=== PATIENT | female | born 1955 | race Caucasian/White ===

== ENCOUNTER 2018-06-25 11:38 | Emergency (ER) | payer OTHER, SELFPAY ==
[2018-06-25 11:44] VITALS: BP 124/90; PULSE 73; RESP 14; TEMP 36.6; O2SAT 96
--- NOTE | 2018-06-25 12:03 | ED.GENADUL ---
Disposition Clinical Impression: Nausea vomiting and diarrhea Disposition: HOME Condition: Stable Instructions: Acute Nausea and Vomiting (ED) Additional Instructions: follow up with your primary care provider within a week if symptoms continue if you have severe pain, difficulty breathing or persistent vomit despite medications and feel dehydrated return to the emergency department Prescriptions: Ondansetron ODT [Zofran Odt] 4 mg PO Q8H PRN PRN #20 tabef PRN Reason: Nausea / Vomiting Medical Decision Making - Lab Data Results reviewed for labs ordered during visit: Yes - Radiology Data Radiology results: report reviewed, image reviewed - Medical Decision Making pt here with symptoms that could be from gastroenteritis, but given right lower back pain will obtain renal colic .Will also eval for electrolyte abnormalities. No risk factors for c diff. Has no significant pain in the abdomen and no ruq so doubt heptiatitis, cholecystitis, or sbo labs unremarkable, her nausea is better but now had mild headache which she gets frequently and is not worse of her life, doubt sah or assembly machine tender infection at this time. will treat with toradol and d/c home. advised f/u with pcp and return precautions given - Differential Diagnosis gastroenteritis, renal colic, colitis History of Present Illness - General Chief complaint: Nausea/Vomit/Diar Stated complaint: PER TENISHA Time Seen by Provider: 06/25/18 11:41 Source: patient Mode of arrival: ambulatory Limitations: no limitations - History of Present Illness Initial comments: 63 yo female comes in with nausea and vomit along with watery stools since yesterday and states she can't keep anything down when trying to eat. She also notes intermittent right lower back pain of the lumbar region. She denies fevers, recent travel or abx. Has had some abodminal cramping but no pain. Has no abdominal tenderness on exam and no cva tenderness, denies dysuria or frequency MD Complaint: n/v/d Onset/Timin -: days(s) Improves with: none Worsens with: none - Related Data Guaifenesin [Mucinex] 1 - 2 tab-cap PO Q12H PRN PRN tab-cap 02/04/13 Multivitamin [Multi-Vitamin Daily] 1 each PO DAILY 02/04/13 Cranberry Conc/Ascorbic Acid [Cranberry Plus Vitamin C Sftgl] 1 each PO DAILY 03/22/14 Calcium Carbonate [Caltrate 600] 600 mg PO BID 04/07/14 Acetaminophen [Tylenol Extra Strength] 1,000 mg PO Q6H PRN 05/09/15 Ibuprofen [Ibuprofen Ib] 600 mg PO PRN PRN 09/16/16 Fluticasone Propionate [Flonase] 2 sprays NS DAILY #1 canister 11/13/17 Glucosamine/D3/Boswellia Marie [Osteo Bi-Flex Caplet] 2 each PO DAILY 11/13/17 Ipratropium [place] 2 sprays NS BID #1 canister 11/13/17 Cholecalciferol (Vitamin D3) [Vitamin D3] 2,000 unit PO DAILY 11/26/17 Fexofenadine HCl 180 mg PO DAILY tab-cap 11/26/17 Losartan [Cozaar] 25 mg PO DAILY #90 tab 04/09/18 Ondansetron ODT [Zofran Odt] 4 mg PO Q8H PRN PRN #20 tabef 06/25/18 Prochlorperazine [Compazine] 25 mg RC BID PRN #10 supp.rect 06/25/18 Allergies Allergy/AdvReac Type Severity Reaction Status Date / Time oxybutynin Allergy Severe Anaphylaxsi Unverified 06/25/18 11:49 s oxycodone Allergy Severe itching/diz Unverified 06/25/18 11:49 ziness Penicillins Allergy Severe Rash Unverified 06/25/18 11:49 Sulfa (Sulfonamide Allergy Intermediate Itching Unverified 06/25/18 11:49 Antibiotics) zoster vaccine live Allergy Intermediate Unverified 06/25/18 11:49 [From Zostavax (PF)] adhesive AdvReac Intermediate Skin Rash Unverified 06/25/18 11:49 loratadine AdvReac Intermediate Palpitation Unverified 06/25/18 11:49 s morphine AdvReac Intermediate profuse Unverified 06/25/18 11:49 vomiting codeine AdvReac Unknown profuse Unverified 06/25/18 11:49 vomiting erythromycin base AdvReac Unknown Diarrhea Unverified 06/25/18 11:49 on day 1 Review of Systems Constitutional: denies: chills, fever Respiratory: denies: shortness of breath Cardiovascular: denies: chest pain Gastrointestinal: nausea, vomiting, diarrhea. denies: abdominal pain Musculoskeletal: back pain Skin: denies: rash Neurological: denies: headache Comment: All other systems reviewed and negative Past Medical History - Past Medical History Medical history: hyperlipidemia - Social History Alcohol use: none Drug use: none General Exam - General Limitations: no limitations General appearance: alert, in no apparent distress - Head Head exam: Present: atraumatic - Eye Eye exam: Present: normal apperance - ENT ENT exam: Present: mucous membranes moist - Neck Neck exam: Present: normal inspection - Respiratory Respiratory exam: Present: normal lung sounds bilaterally. Absent: respiratory distress - Cardiovascular Cardiovascular Exam: Present: regular rate, normal rhythm, normal heart sounds - GI/Abdominal GI/Abdominal exam: Present: soft. Absent: tenderness - Extremities Exam Extremities exam: Present: normal inspection. Absent: pedal edema - Neurological Exam Neurological exam: Present: alert, oriented X3 - Psychiatric Psychiatric exam: Present: normal affect - Skin Skin exam: Present: warm Course Vital Signs - 24 hr 08/15/18 11:44 Temperature 97.9 F Pulse 73 Respiratory 14 Rate Blood Pressure 124/90 Pulse Oximetry 96
[2018-06-25] MEDS: Ondansetron 4 MG/2 ML VIAL IVP (12:20)
[2018-06-25] MEDS: Normal Saline 1,000 ML 1000 ML IV (12:20)
[2018-06-25 12:23] LABS: Abs Immature Grans 0.02 k/cumm (0.0-0.09); Absolute Basophil Count 0.01 k/cumm (0.0-0.2); Absolute Eosinophil Count 0.03 k/cumm (0.0-0.7); Absolute Lymphocyte Count 1.13 k/cumm (1.2-3.4); Absolute Monocyte Count 0.34 k/cumm (0.11-0.7); Absolute Neutrophil Count 7.18 k/cumm (1.2-6.7); Basophils % 0.1; Eosinophils % 0.3; HCT 44.5 % (36.0-46.0); HGB 15.3 g/dL (12.0-15.5); Immature Grans % 0.2; Mean Corp. HGB Concentration 34.4 g/dL (32.0-36.0); Mean Corpuscular Hemoglobin 32.9 pg (27.0-33.0); Mean Corpuscular Volume 95.7 fL (80-95); Mean Platelet Volume 10.1 fL (8.0-11.0); Monocytes % 3.9; Neutrophils % 82.5; Platelet Count 222 x1000/uL (130-400); RBC 4.65 m/cumm (4.00-5.20); RBC Distribution Width 12.8 % (11.7-14.6); White Blood Cell Count 8.71 k/cumm (4.4-10.8)
[2018-06-25 12:34] LABS: ALT 73 U/L (12-78); AST 36 U/L (15-37); Albumin 3.8 g/dL (3.4-5.0); Alkaline Phosphatase 72 U/L (46-116); Anion Gap 9.6 mmol/L (3-11); BUN 19 mg/dL (7-18); Bilirubin, Total 0.5 mg/dL (0.2-1.0); CO2 26.4 mmol/L (21.0-32.0); CREATININE 0.79 mg/dL (0.55-1.02); Calcium 9.4 mg/dL (8.5-10.1); Chloride 106 mmol/L (98-107); Glucose 147 mg/dL (70-100); Lipase 160 U/L (73-393); Magnesium 1.6 mg/dL (1.8-2.4); Sodium 142 mmol/L (136-145); Total Protein 7.8 g/dL (6.4-8.2)
--- NOTE | 2018-06-25 12:54 | DI.RPTCT_ITS ---
SYMPTOM/DIAGNOSIS: RIGHT FLANK PAIN ABDOMINAL AND PELVIC CT: 06/25/18 CT examination of the abdomen and pelvis was performed without contrast administration. Images obtained through the lung bases are unremarkable. The visualized portions of the liver are unremarkable in appearance as is the spleen. Gallbladder has been surgically removed. Pancreas is grossly unremarkable in appearance. No biliary dilatation seen. Abdominal aorta is of normal diameter. There appears to be a small fat containing left lower abdominal, lateral Spigelian hernia. No additional abdominal wall hernia is seen apart from small fat containing inguinal hernias bilaterally, Appendix appears to have been surgically removed. No evidence of diverticulitis or bowel obstruction. No abdominal or pelvic adenopathy seen. Adrenals appear normal bilaterally Kidneys are unremarkable in appearance with no evidence of a renal mass, hydronephrosis or nephrolithiasis. No ureteral calcification or obstruction identified. Urinary bladder is empty. Left hip prosthesis noted in position. CONCLUSION: No evidence of urinary tract calcification or obstruction.
[2018-06-25 13:07] LABS: Bilirubin Negative (Negative); Blood Negative (Negative); Clarity Clear; Glucose Negative (Negative); Ketones 15 mg/dL (Negative); Leukocyte Esterase Small (Negative); Nitrite Negative (Negative); Specific Gravity 1.025 (1.005-1.025); Urobilinogen 0.2 EU/dL (Up TO 0.2); pH 5.5 (5-8)
[2018-06-25] MEDS: Ketorolac 15 MG/ML VIAL IVP (13:15)
[2018-06-25 13:20] LABS: Bacteria Moderate HPF (Negative); Casts 0-2 Coarse Granular LPF (Negative); Crystals Negative HPF (Negative); Epithelial Cells Moderate HPF (Negative); Mucus Heavy (Negative); Other Cells Moderate Renal (Negative)
[2018-06-25 13:21] LABS: C & S Indicated? No
[2018-06-25] MEDS: Ondansetron O.D.T. 4 MG TABEF (13:45)
== END 2018-06-25 14:05 | disposition home or self-care (01) ==
PROVIDERS: Emergency Provider Emergency Medicine; PCP Nurse Practitioner
DX: R11.2 Nausea with vomiting, unspecified (principal); R19.7 Diarrhea, unspecified; M54.5 Low back pain; I10 Essential (primary) hypertension
CPT/HCPCS: 36415; 80053; 83690; 96361; 96374; 96375; 99284; 74176; 81003; 81015; 83735; 85025; J1885; J2405

== ENCOUNTER 2018-06-26 12:23 | Emergency (ER) | payer OTHER, SELFPAY ==
[2018-06-26] VITALS (25 sets, daily range): BP systolic 101–136; BP diastolic 67–91; PULSE 68–78; RESP 14–16; TEMP 36.6–36.8; O2SAT 89–99
--- NOTE | 2018-06-26 13:03 | ED.GENADUL ---
Disposition Clinical Impression: Nausea vomiting and diarrhea Disposition: HOME Condition: Serious Instructions: Acute Nausea and Vomiting (ED) Additional Instructions: Please drink small amounts of fluid often to stay hydrated. Use suppository as prescribed for nausea. Please follow-up with your primary care physician. Return to the emergency department immediately for any worsening or new concerning symptoms. Referrals: Clemencia Ely NP [Primary Care Provider] - Medical Decision Making - Lab Data Laboratory Tests 06/26/18 06/26/18 06/26/18 12:54 13:00 13:00 WBC 8.62 RBC 4.49 Hgb 14.8 Hct 43.0 MCV 95.8 H MCH 33.0 MCHC 34.4 RDW 12.6 Plt Count 205 MPV 9.7 Immature Gran % 0.2 Neutrophils % 74.5 Lymphocytes % 18.0 Monocytes % 6.5 Eosinophils % 0.7 Basophils % 0.1 Absolute Neutrophils 6.42 Absolute Lymphocytes 1.55 Absolute Monocytes 0.56 Absolute Eosinophils 0.06 Absolute Basophils 0.01 Sodium 142 Potassium 4.2 Chloride 105 Carbon Dioxide 26.6 Anion Gap 10.4 BUN 20 H Creatinine 0.76 Estimated GFR/1.73 m2 >= 60.00 Glucose 113 H Calcium 9.0 Total Bilirubin 0.6 AST 38 H ALT 71 Alkaline Phosphatase 68 Total Protein 7.6 Albumin 3.7 Lipase Cancelled 160 Results reviewed for labs ordered during visit: Yes - Medical Decision Making 13:05 --63-year-old female here with nausea vomiting and loose stool for the past 2 days. Not tolerating oral intake. Patient recently placed prochlorperazine suppository. Will give IV fluids. Labs yesterday were nondiagnostic. Will repeat labs today to see if there is any electrolyte abnormalities or change in LFTs. -- Pt reassessed and improved. Pt to be discharged home. She was encouraged to follow-up with PCP and return to the ER for any worsening or new concerning symptoms. History of Present Illness - General Chief complaint: Nausea/Vomit/Diar Stated complaint: REVISIT Time Seen by Provider: 06/26/18 12:26 Source: patient, RN notes reviewed Mode of arrival: ambulatory Limitations: no limitations - History of Present Illness Initial comments: 63-year-old female presents with chief complaint of vomiting. Patient unable to keep any fluids down. Patient notes nausea with vomiting and loose stool for the past 2 days. Patient was seen by her PCP yesterday and sent to the emergency department for evaluation. Patient was seen here yesterday and had a complete workup to include diagnostic labs and CT of the abdomen pelvis that were nondiagnostic. She was given IV fluid and discharged with Zofran. Patient notes that she did not feel well and developed headache with Zofran. She was prescribed prochlorperazine suppository which she placed today at 9am. Patient notes associated muscular abdominal pain from retching. Patient denies chest pain. No known sick contacts. No recent travel. - Related Data Guaifenesin [Mucinex] 1 - 2 tab-cap PO Q12H PRN PRN tab-cap 02/04/13 Multivitamin [Multi-Vitamin Daily] 1 each PO DAILY 02/04/13 Cranberry Conc/Ascorbic Acid [Cranberry Plus Vitamin C Sftgl] 1 each PO DAILY 03/22/14 Calcium Carbonate [Caltrate 600] 600 mg PO BID 04/07/14 Acetaminophen [Tylenol Extra Strength] 1,000 mg PO Q6H PRN 05/09/15 Ibuprofen [Ibuprofen Ib] 600 mg PO PRN PRN 09/16/16 Fluticasone Propionate [Flonase] 2 sprays NS DAILY #1 canister 11/13/17 Glucosamine/D3/Boswellia Marie [Osteo Bi-Flex Caplet] 2 each PO DAILY 11/13/17 Ipratropium [place] 2 sprays NS BID #1 canister 11/13/17 Cholecalciferol (Vitamin D3) [Vitamin D3] 2,000 unit PO DAILY 11/26/17 Fexofenadine HCl 180 mg PO DAILY tab-cap 11/26/17 Losartan [Cozaar] 25 mg PO DAILY #90 tab 04/09/18 Ondansetron ODT [Zofran Odt] 4 mg PO Q8H PRN PRN #20 tabef 06/25/18 Prochlorperazine [Compazine] 25 mg RC BID PRN #10 supp.rect 06/25/18 Allergies Allergy/AdvReac Type Severity Reaction Status Date / Time oxybutynin Allergy Severe Anaphylaxsi Unverified 06/26/18 12:36 s oxycodone Allergy Severe itching/diz Unverified 06/26/18 12:36 ziness Penicillins Allergy Severe Rash Unverified 06/26/18 12:36 Sulfa (Sulfonamide Allergy Intermediate Itching Unverified 06/26/18 12:36 Antibiotics) zoster vaccine live Allergy Intermediate Unverified 06/26/18 12:36 [From Zostavax (PF)] adhesive AdvReac Intermediate Skin Rash Unverified 06/26/18 12:36 loratadine AdvReac Intermediate Palpitation Unverified 06/26/18 12:36 s morphine AdvReac Intermediate profuse Unverified 06/26/18 12:36 vomiting codeine AdvReac Unknown profuse Unverified 06/26/18 12:36 vomiting erythromycin base AdvReac Unknown Diarrhea Unverified 06/26/18 12:36 on day 1 Review of Systems Constitutional: denies: diaphoresis, fever Respiratory: denies: shortness of breath Cardiovascular: denies: chest pain Gastrointestinal: abdominal pain, nausea, vomiting, diarrhea Comment: All other systems reviewed and negative Past Medical History - Past Medical History Medical history: arthritis, hyperlipidemia, hypertension - Social History Alcohol use: none Drug use: none General Exam - General Limitations: no limitations General appearance: alert, in no apparent distress - Eye Eye exam: Absent: scleral icterus, conjunctival injection - ENT ENT exam: Present: mucous membranes dry - Respiratory Respiratory exam: Present: normal lung sounds bilaterally. Absent: respiratory distress, wheezes, rales, rhonchi - Cardiovascular Cardiovascular Exam: Present: regular rate, normal rhythm, normal heart sounds - GI/Abdominal GI/Abdominal exam: Present: soft, tenderness (minimal upper abd bilaterally), normal bowel sounds. Absent: distended, guarding, rebound, rigid - Neurological Exam Neurological exam: Present: alert. Absent: altered - Psychiatric Psychiatric exam: Present: normal affect - Skin Skin exam: Present: warm, dry, intact Course Vital Signs - 24 hr 06/26/18 12:30 Temperature 36.8 C Pulse 78 Respiratory 16 Rate Blood Pressure 132/90 Pulse Oximetry 98
[2018-06-26] MEDS: Lactated Ringers 1,000 ML 1000 ML IV ×2 (13:05→15:30)
[2018-06-26 13:12] LABS: Abs Immature Grans 0.02 k/cumm (0.0-0.09); Absolute Basophil Count 0.01 k/cumm (0.0-0.2); Absolute Eosinophil Count 0.06 k/cumm (0.0-0.7); Absolute Lymphocyte Count 1.55 k/cumm (1.2-3.4); Absolute Monocyte Count 0.56 k/cumm (0.11-0.7); Absolute Neutrophil Count 6.42 k/cumm (1.2-6.7); Basophils % 0.1; Eosinophils % 0.7; HGB 14.8 g/dL (12.0-15.5); Immature Grans % 0.2; Mean Corp. HGB Concentration 34.4 g/dL (32.0-36.0); Mean Corpuscular Volume 95.8 fL (80-95); Mean Platelet Volume 9.7 fL (8.0-11.0); Monocytes % 6.5; Neutrophils % 74.5; Platelet Count 205 x1000/uL (130-400); RBC 4.49 m/cumm (4.00-5.20); RBC Distribution Width 12.6 % (11.7-14.6); White Blood Cell Count 8.62 k/cumm (4.4-10.8)
[2018-06-26 13:26] LABS: ALT 71 U/L (12-78); AST 38 U/L (15-37); Albumin 3.7 g/dL (3.4-5.0); Alkaline Phosphatase 68 U/L (46-116); Anion Gap 10.4 mmol/L (3-11); BUN 20 mg/dL (7-18); Bilirubin, Total 0.6 mg/dL (0.2-1.0); CO2 26.6 mmol/L (21.0-32.0); CREATININE 0.76 mg/dL (0.55-1.02); Chloride 105 mmol/L (98-107); Glucose 113 mg/dL (70-100); Lipase 160 U/L (73-393); Potassium 4.2 mmol/L (3.5-5.1); Sodium 142 mmol/L (136-145); Total Protein 7.6 g/dL (6.4-8.2)
== END 2018-06-26 17:11 | disposition home or self-care (01) ==
PROVIDERS: Emergency Provider Student in an Organized Health Care Education/Training Program; PCP Nurse Practitioner
DX: R11.2 Nausea with vomiting, unspecified (principal); R19.7 Diarrhea, unspecified; I10 Essential (primary) hypertension
CPT/HCPCS: 36415; 80053; 83690; 96360; 96361; 99284; 85025; 99283

== ENCOUNTER 2018-08-19 08:09 | Outpatient (REF) | payer OTHER, SELFPAY ==
[2018-08-21 11:38] LABS: Helicobacter pylori Ag, Feces Negative (NEGAT)
== END 2018-08-19 08:29 ==
LOC: LBN 08:09
PROVIDERS: PCP Nurse Practitioner; Visit Provider Nurse Practitioner
DX: K21.9 Gastro-esophageal reflux disease without esophagitis (principal)
CPT/HCPCS: 87338

== ENCOUNTER 2018-10-03 07:22 | Outpatient (CLI) | payer OTHER, SELFPAY ==
[2018-10-03 09:09] LABS: ALT 65 U/L (12-78); AST 32 U/L (15-37); Albumin 3.9 g/dL (3.4-5.0); Alkaline Phosphatase 71 U/L (46-116); Anion Gap 7.7 mmol/L (3-11); BUN 20 mg/dL (7-18); Bilirubin, Total 0.7 mg/dL (0.2-1.0); CO2 28.3 mmol/L (21.0-32.0); CREATININE 0.85 mg/dL (0.55-1.02); Calcium 9.6 mg/dL (8.5-10.1); Chloride 104 mmol/L (98-107); Cholesterol 202 mg/dL (50-200); Glucose 126 mg/dL (70-100); HDL Cholesterol 72 mg/dL (40-60); LDL CHOLESTEROL 118 mg/dL (<100); Potassium 4.3 mmol/L (3.5-5.1); Sodium 140 mmol/L (136-145); TSH (W/Ref FT4) 2.16 uIU/mL (0.358-3.74); Total Protein 7.1 g/dL (6.4-8.2); Triglyceride 107 mg/dL (30-150)
== END 2018-10-03 07:42 ==
LOC: LBN 07:41 → LBO 10:48
PROVIDERS: PCP Nurse Practitioner; Visit Provider Nurse Practitioner
DX: I10 Essential (primary) hypertension (principal); E78.5 Hyperlipidemia, unspecified; R73.01 Impaired fasting glucose; E66.9 Obesity, unspecified
CPT/HCPCS: 36415; 80053; 80061; 83721; 83036; 84443

== ENCOUNTER 2018-10-10 00:29 | Outpatient (CLI) | payer OTHER, SELFPAY ==
--- NOTE | 2018-10-10 09:18 | DI.RAD_ITS ---
SYMPTOMS/DIAGNOSIS: CHRONIC RIGHT HIP PAIN, M25.551, G89.29 RIGHT HIP: Two views were obtained. Note is made of a left hip prosthesis in position. There is narrowing of the cartilaginous joint space of the right hip superiorly with mild subchondral sclerosis and osteophyte formation of the acetabulum. No other significant bony abnormality seen. CONCLUSION: Moderate DJD, right hip.
== END 2018-10-10 00:49 ==
PROVIDERS: PCP Nurse Practitioner; Visit Provider Nurse Practitioner
DX: M25.551 Pain in right hip (principal); G89.29 Other chronic pain; M16.11 Unilateral primary osteoarthritis, right hip; Z96.642 Presence of left artificial hip joint
CPT/HCPCS: 73502

== ENCOUNTER 2018-11-20 00:36 | Outpatient (CLI) | payer OTHER, SELFPAY ==
--- NOTE | 2018-11-20 07:31 | DI.RAD_ITS ---
SYMPTOMS/DIAGNOSIS: RT HIP INJECTION, ARTHRITIS RT HIP, M16.11, PRIMARY OA FLUOROSCOPY OF THE RIGHT HIP: Fluoroscopy Time: 2 sec Fluoroscopy was provided for Dr. Ames for guidance with right hip injection. Please see procedure note for details.
[2018-11-20] MEDS: methylPREDNISolone ACETATE 80 MG/ML VIAL IM (10:01)
[2018-11-20] MEDS: Bupivacaine 0.5% Pres-Free 10 ML VIAL 6 ML IJ (10:02)
[2018-11-20] MEDS: Omnipaque 300 MG/ML 10 ML BTL IJ (10:03)
--- NOTE | 2018-11-20 21:08 | W.PROCNOTE ---
Date of service: 11/20/18 Time of Service: 11:08 Procedure Note Date of procedure: 11/20/18 Procedure: Right Hip Injection with Fluoroscopic Guidance Surgeon/Proceduralist/Physician: Toby Ames Procedure Diagnosis: Right Hip Osteoarthritis Procedure Indications: Diana has had persistent pain of the RIGHT hip and groin. Noninvasive measures have been tried. To serve as both diagnostic and therapeutic, an injection under fluoroscopy was recommended. I had discussed the risks of the procedure and the patient elected to proceed. Procedure Description: Diana was greeted in the flouroscopy room. The correct side was identified and the consent was reviewed with the patient and signed. The patient was then placed in the supine position on the fluoroscopy table. The RIGHT hip was then prepped with Chloraprep. The anterolateral injection starting point was identiifed by bony landmarks and fluoroscopy. The skin and soft tissue in the tract of the injection was anesthetized with 1% Lidocaine. A spinal needle was then inserted deep into the hip joint at the level of the lateral femoral neck under fluoroscopic guidance. A small amount of Omnipaque solution was injected to confirm intraarticular placement. Once confirmed, the hip was injected with 6cc of 0.5% Bupivicaine and 80mg of Depo-Medrol. A bandaid was placed on the injection site. The patient tolerated the procedure well and noted improvement in pre-injection pain.
== END 2018-11-20 00:56 ==
PROVIDERS: PCP Nurse Practitioner; Visit Provider Student in an Organized Health Care Education/Training Program
DX: M25.551 Pain in right hip (principal); M16.11 Unilateral primary osteoarthritis, right hip
CPT/HCPCS: 20610; 77002; J1040

== ENCOUNTER 2018-11-24 06:52 | Day surgery (SDC) | payer OTHER, SELFPAY ==
--- NOTE | 2018-11-23 15:40 | POEE_ITS ---
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 She notes progressive decreased vision in both eyes at both distance and near, left eye worse than right. She notes sign ificant difficulty driving at night. On examination she was noted to have mild to moderate bilateral nuclear cataracts with moderate cortical cataract of the left eye. The option of cataract surgery was offered to the patient and she felt she was symptomatic enough that she wished to proceed with cataract surgery of the left eye. NOTE: The Chief Complaint, HPI, Past Medical History, Past Surgical History, Family History, Social History, Medications, and complete Ophthalmic Exam with detailed Assessment and Plan have already been documented in the patient's outpatient ophthalmic record and are not covered again in detail here. 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 Father Emphysema lung Social History frequency: 5-6 times per week duration: < 15 minutes/day Smoking/Tobacco Use Status: Never alcohol intake: current alcohol intake frequency: holidays/special occasions only Alcohol type: hard liquor substance use type: does not use Meds Home Medications Medication Instructions Recorded Confirmed Type guaifenesin [Mucinex] 1 - 2 tab-cap PO Q12H PRN PRN 02/04/13 11/21/18 History tab-cap multivitamin [Daily Multi-Vitamin] 1 ea PO DAILY 02/04/13 11/21/18 History cranberry conc-ascorbic acid 1 ea PO DAILY 03/22/14 11/21/18 History calcium carbonate [Caltrate 600] 600 mg PO BID 04/07/14 11/21/18 History acetaminophen [Tylenol Extra 1,000 mg PO Q6H PRN 05/09/15 11/21/18 History Strength] ibuprofen [Ibuprofen IB] 600 mg PO PRN PRN 09/16/16 11/21/18 History [id number] serr 2 ea PO DAILY 11/13/17 11/21/18 History [Osteo Bi-Flex (5-Loxin)] cholecalciferol (vitamin D3) 2,000 unit PO DAILY 11/26/17 11/21/18 History [Vitamin D3] fexofenadine 180 mg PO DAILY tab-cap 11/26/17 11/21/18 History losartan 25 mg PO DAILY #90 tab 04/09/18 11/21/18 Rx ranitidine 150 mg tablet 300 mg PO DAILY #60 tab 08/13/18 11/21/18 Rx fluticasone 50 mcg/actuation nasal 2 spray NS DAILY #1 gm 10/08/18 11/21/18 Rx spray,suspension ipratropium bromide 0.03 % nasal 2 spray NS BID #1 ml 10/08/18 11/21/18 Rx spray diazepam 5 mg tablet 5 mg PO DAILY PRN #5 tab 11/12/18 11/21/18 Rx Allergies Allergy/AdvReac Type Severity Reaction Status Date / Time oxybutynin Allergy Severe Anaphylaxsi Unverified 11/21/18 08:52 s oxycodone Allergy Severe itching/diz Unverified 11/21/18 08:52 ziness Penicillins Allergy Severe Rash Unverified 11/17/18 08:09 Sulfa (Sulfonamide Allergy Intermediate Itching Unverified 11/21/18 08:52 Antibiotics) zoster vaccine live Allergy Intermediate Unverified 11/21/18 08:52 [From Zostavax (PF)] adhesive AdvReac Intermediate Skin Rash Unverified 11/21/18 08:52 loratadine AdvReac Intermediate Palpitation Unverified 11/21/18 08:52 s morphine AdvReac Intermediate profuse Unverified 11/21/18 08:52 vomiting codeine AdvReac Unknown profuse Unverified 11/21/18 08:52 vomiting erythromycin base AdvReac Unknown Diarrhea Unverified 11/21/18 08:52 on day 1 Exam OCULAR EXAM:: Most recent ocular examination revealed corrected visual acuity of 20/20 right eye, 20/40 left eye. Intraocular pressure is 17 OD, 15 OS. Extraocular motility is normal. Pupils equal, round, and reactive without afferent pupillary defect slit-lamp examination reveals 1+ nuclear cataract OU. 1-2+ cortical cataract is present OS. Funduscopic exam shows disc cupping of 0.3 OU with good color. The optic nerves have good perfusion and normal color. The retinal vasculature is normal without significant tortuosity or abnormality. The maculas are normal in appearance with normal contour and foveal reflex appropriate for age. The peripheral retina and vitreous are normal. BRIGHTNESS ACUITY TESTING (BAT):: Brightness acuity testing of the left eye off is 20/40. Low at 2030. Medium 20/40. High 20/40. Assessment and Plan (1) Nuclear sclerotic cataract of right eye: Current visit: No Status: Acute Assessment: Visually significant cataract, left eye. Plan: Cataract extraction with intraocular lens implantation, left eye (2) Cortical cataract of left eye: Current visit: No Status: Acute Assessment: Visually significant cataract, left eye. Plan: Cataract extraction with intraocular lens implantation, left eye Note: NOTE:: The details of the planned surgery, including the risks, indicatio ns,limitations,expectations,outcome and possible complications were explained to the patient. The patient understands the complications including, but not limited to: infection, hemorrhage, posterior dislocation of the lens or nuclear fragments which may require the intervention of a vitreoretinal surgeon, possible loss of the eye, or from anesthetic complications. The patient has been made aware of the option of not having surgery, that vision following surgery may not be equal to that prior to surgery, and that the planned surgery may not achieve the intended results. Following this discussion, which the patient appeared to understand, the patient wishes to proceed with cataract surgery with lens implantation of the affected eye to improve and maximize vision.
[2018-11-24 07:17] VITALS: BP 125/77; PULSE 77; RESP 16; TEMP 36.5; O2SAT 95
[2018-11-24] MEDS: Tetracaine 0.5% 4 ML BTL OS ×4 (07:33→08:18)
[2018-11-24] MEDS: Tropicam./Phenyleph. (1/2.5%) 5 ML BTL OS ×3 (07:34→07:43)
--- NOTE | 2018-11-24 08:00 | W.PM.DSUDISC ---
Discharge Plan Discharge Details Attending Provider: Yrn Oneill Primary Care Provider: Clemencia Ely Home Meds and New Rx's Prescriptions: No Action ipratropium bromide 0.03 % spray,non-aerosol 2 spray NS BID Qty: 1 RF: 6 fluticasone 50 mcg/actuation spray,suspension 2 spray NS DAILY Qty: 1 RF: 12 ranitidine HCl 150 mg tablet 300 mg PO DAILY Qty: 60 RF: 6 diazepam 5 mg tablet 5 mg PO DAILY PRN (Reason: dental appointment) Qty: 5 RF: 0 multivitamin [Daily Multi-Vitamin] 1 EACH tablet 1 ea PO DAILY RF: 0 guaifenesin [Mucinex] 600 MG tablet extended release 12hr 1 - 2 tab-cap PO Q12H PRN PRN (Reason: Allergy Symptoms) RF: 0 cranberry conc-ascorbic acid 1 EACH capsule 1 ea PO DAILY RF: 0 calcium carbonate [Caltrate 600] 600 MG tablet 600 mg PO BID RF: 0 [id number] serr [Osteo Bi-Flex (5-Loxin)] 1 EACH tablet 2 ea PO DAILY RF: 0 fexofenadine 180 MG tablet 180 mg PO DAILY RF: 0 cholecalciferol (vitamin D3) [Vitamin D3] 2,000 UNIT capsule 2,000 unit PO DAILY RF: 0 losartan 25 MG tablet 25 mg PO DAILY Qty: 90 RF: 3 acetaminophen [Tylenol Extra Strength] 500 MG tablet 1,000 mg PO Q6H PRN (Reason: Pain) RF: 0 ibuprofen [Ibuprofen IB] 200 MG tablet 600 mg PO PRN PRNRF: 0 Discharge Instructions Stand Alone Forms: Post-op Topical Cataract, [facility] [place] ([facility]) DS: Diagnosis Discharge Diagnosis (1) Status post cataract extraction and insertion of intraocular lens of left eye: Status: Chronic
[2018-11-24] MEDS: Lidocaine 2% Jelly 6 ML SYR (08:19)
[2018-11-24] MEDS: Povidone-Iodine Ophth 30 ML BTL (08:19)
[2018-11-24] MEDS: Lidocaine 1% Pres-Free 5 ML VIAL (08:26)
[2018-11-24] MEDS: Balanced Salt Soln.-PLUS 500 ML BAG (08:27)
--- NOTE | 2018-11-24 08:55 | ROE_ITS ---
Date of service: 11/24/18 Time of Service: 08:53 Operative Note DATE OF PROCEDURE: 11/24/18 PRE-OP DIAGNOSIS: Cataract, left eye POST-OP DIAGNOSIS: same PROCEDURE: Cataract extraction using phacoemulsification with intraocular lens implant, left eye SURGEON: Yrn Oneill ANESTHESIA: MAC and local (sub-tenon's anesthetic infiltration) PATHOLOGY: none sent COMPLICATIONS: None Patient was transported to: same day Patient's condition: stable Implants: [employer] / [employer] Tecnis [id number] Indications: Progressive decreased vision due to cataract, left eye Procedure Description: CATARACT SURGERY OPERATIVE REPORT PREOPERATIVE DIAGNOSIS: Nuclear/cortical cataract, left eye POSTOPERATIVE DIAGNOSIS: Same OPERATION: Cataract extraction using phacoemulsification with posterior chamber intraocular lens implant, left eye. 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 She is significantly symptomatic that she desired cataract surgery and attempt to improve and maximize her vision. She understands that postoperative visual acuity will be limited by the presence of her pre-existing maculopathy. PROCEDURE: The correct surgical eye was identified and marked as the left eye and the pupil was dilated in the preoperative area using mydriatics and cycloplegics. The dilated pupil size was 7.0 mm. Oral sedation was administered in the form of an Imprimis MKO Melt (midazolam 3mg/ketamine 25mg/ondansetron 2mg). The patient was brought to the operating room where cardiopulmonary monitoring was instituted and surgical time-out was performed, confirming the correct operative eye and IOL power. Topical anesthesia was administered and ophthalmic povidone-iodine 5% was instilled into the conjunctival fornices. Lidocaine gel was applied to the cornea and the homar-ocular area was prepped with Betadine 10% solution and draped in the usual sterile fashion for intraocular surgery, including an aperture drape. A Tegaderm transparent film dressing was cut in half and used to cover the lashes and lid margins. Care was taken to sequester the lashes and lid margins under the Tegaderm dressing. A lid speculum was placed between the lids of the operative eye and the Darlene-Jacobo operating microscope was maneuvered into position. Shay scissors were then used to make a conjunctival buttonhole approximately 6mm posterior to the limbus in the inferonasal quadrant. Blunt dissection was carried out to expose bare sclera, and a blunt-tipped sub-tenon?s anesthesia cannula was introduced and passed posteriorly along the globe where non- preserved plain lidocaine was injected into posterior sub-Tenon?s space. A si deport knife was used to make a paracentesis port superior/superiortemporal, and the anterior chamber was filled with Healon GV. A 2.4mm keratome knife was used to create a half-thickness groove at the limbus and then to construct a three- plane near-clear corneal tunnel extending 2.0mm into clear cornea in the temporal position. . A flap was raised on the anterior capsule and capsulorhexis forceps were used to complete a continuous curvilinear capsulorhexis of 5.0 mm. Balanced salt solution was then used to perform cortical cleaving hydrodissection and nuclear hydrodelineation until the lens could be freely rotated within the capsular bag. The lens nucleus was then disassembled and removed within the capsular bag and iris plane using phacoemulsification. Residual cortical material was removed using the 45-degree angled silicone I/A tip with 0.3mm port. The posterior capsule was carefully polished to remove as much residual lens epithelial cells as safely possible. The capsular bag was then inflated and the anterior chamber deepened with viscoelastic. The lens implant described above was inserted into the capsular bag using the YSABEL [place] Injector. A Kuglen hook was used to dial the IOL into position. Residual viscoelastic was then removed first from posterior to the IOL, then from the anterior chamber using the I/A handpiece. The lens implant was noted to center nicely within the capsular bag. The incisions were stromally hydrated, and the anterior chamber was reformed using BSS. Then 0.4cc of moxifloxacin 1.5mg/ml were injected into the capsular bag and anterior chamber. The incisions were checked with a Weck spear and found to be secure. Several drops of ophthalmic povidone-iodine 5% were then applied to the eye followed by two drops of Imprimis combination moxifloxacin/dexamethasone solution. The drapes were removed and a clear plastic protective eye shield was placed over the eye. The patient was then returned to Same Day Surgery in stable condition.
[2018-11-24 10:21] VITALS: BP 108/64; PULSE 73; RESP 14; TEMP 36.5; O2SAT 92
== END 2018-11-24 09:35 | disposition home or self-care (01) ==
PROVIDERS: PCP Nurse Practitioner; Visit Provider Ophthalmology
PROC: (CPT 66984; principal; 2018-11-24 08:30)
DX: H25.812 Combined forms of age-related cataract, left eye (principal); I10 Essential (primary) hypertension
CPT/HCPCS: 66984; V2632

== ENCOUNTER 2019-01-07 09:13 | Outpatient (CLI) | payer BC, SELFPAY ==
--- NOTE | 2019-01-07 08:16 | DI.RAD_ITS ---
SYMPTOM/DIAGNOSIS: RT HIP OA RIGHT HIP: A single view of the right hip was performed. Comparison xray is 10/10/18. There is mild narrowing of the joint space which is otherwise well maintained. There is normal alignment of the hip seen on this single frontal view. The soft tissues are grossly unremarkable.
== END 2019-01-07 09:33 ==
PROVIDERS: PCP Nurse Practitioner; Visit Provider Physician Assistant
DX: M16.11 Unilateral primary osteoarthritis, right hip (principal)
CPT/HCPCS: 73501

== ENCOUNTER 2019-03-13 09:05 | Outpatient (CLI) | payer BC, SELFPAY ==
--- NOTE | 2019-03-13 08:06 | W.PREOPHP ---
Assessment and Plan (1) Arthritis of right hip: Current visit: No Status: Chronic Plan: Educated patient on surgery covering surgical technique via prosthesis models, recovery process, benefits and risks including but not limited to risk of infection, blood clot, damage to soft tissue/blood vessels/nerves in detail. After discussion patient gives verbal understanding of risks and elects to proceed with scheduling surgery. Discussed cold symptoms with patient in detail. Educated patient surgery is still 11 days away and she may have improvement of symptoms. Provider notified anesthesia and a THREAD TRIMMER met with patient during her pre-operative visit at day surgery. Created plan with patient to contact office next week to discuss her symptoms. Plan is to continue to have patient scheduled for surgery unless she develops additional/worsening symptoms or if anesthesia has concerns regarding patient safety. Patient had opportunity to have questions answered to her satisfaction. She will contact office if issues arise. Patient will continue to be scheduled for right ALDO with Dr. Ames on 03/24/19. History of Present Illness Narrative: Ms. Humphreys is a 63-year-old female who presents to clinic for preoperative visit for scheduled right total hip replacement with Dr. Ames on 03/24/2019. Patient is status post left total hip replacement by Dr. Berry in May 2015 that has continued to do well. Over the past few years she has noticed her right hip has bothered her but her pain and restricted activity was not severe until early winter 2018. Patient reports her right hip gives out approximately 8?9 times daily. When her hip gives out she is usually able to catch herself. However, there have many numerous occasions when she has fallen which can cause residual pain over the posterior lateral aspect of her right hip that lasts for several days before resolving. Patient states she also has sharp anterior groin pain that is aggravated with any flexion such as bending in her kitchen to open a drawer, sitting up in a chair for prolonged amount of time, moving her leg to operate her vehicle. Pain in her right hip is so severe with bending motions that she has been unable to make a bed or empty her wash machine for several months. With hip flexion she also feels a catching sensation deep within her anterior groin which increases her discomfort. Patient has previously tried Celebrex which she states helped provide pain relief significantly at first. Unfortunately, patient states in recent months Celebrex has not provided as adequate pain relief and has developed diarrhea. Due to diarrhea with Celebrex she has transitioned to taking ibuprofen 600 mg twice daily which provides some pain relief. She has also received injection under fluoroscopy on 11/20/[address] Ames which provided 3 weeks of complete pain relief. Due to patient's continued right hip pain despite conservative therapies she elected to proceed with total hip replacement. Pertinent Surgical Information Patient is concerned that surgery may be canceled due to recent cold. Patient states several family members have been sick with a cough for several weeks. Over the past 2 weeks patient has also had a cough. States cough is predominantly dry but will occasionally have clear?white phlegm production. Patient also states in addition to cough she has been experiencing slight increase from baseline nasal discharge. Reports nasal discharge is clear except for 1 day of slightly yellow-tinged nasal discharge on 03/12/2019. At today's appointment patient denies any yellow-tinged discharge or recent white phlegm production. Patient states she does have a sore throat but is due to postnasal drip that she gets every Spring. She denies any increase in sore throat, dysphasia or odynophagia. Patient takes Mucinex daily at baseline but states she has taken NyQuil 3 times over the past week. Patient denies any fevers, sweats, dyspnea, wheezing or pain with breathing. As per patient she also gets yearly sinus infections around Spring season. However, patient states that she has not had recent headaches, sinus pressure, sinus pain or antibiotics for sinus infection. On physical exam today patient only has slight erythema noted in the posterior oropharynx as well as rhonchi within the right lung. Please refer to physical exam for additional findings. As per patient she does have an adverse reaction to adhesives. Describes one event when she had a Band-Aid on place for greater than 24 hours and developed itching and redness with a pain it had been present. When patient had left total hip replaced by Dr. Berry in May 2015 she describes bandage similar to Steri-Strips which she did not have a reaction to. On occasion while doing crafts she has had residual superglue on her fingers and has not had adverse reaction with glue present on skin for several days. However, due to this adverse reaction to band-aides patient has adapted to only using paper tape at home in place of other bandages. Denies past medical history of: stroke, cardiac issues, angina, asthma, COPD, sleep apnea, renal issues, hepatitis, gastrointestinal ulcers, bleeding disorders, seizures, depression, autoimmune disorders, thyroid issues Denies prior complications from surgery or anesthesia. Review of Systems Constitutional Denies chills, Denies excessive sweating, Denies fever(s), Denies frequent falls and Denies headache(s) Eyes Denies change in vision ENT Denies dizziness, Denies ear discharge, Denies facial pain, Denies headache(s), Denies epistaxis, Denies nasal congestion, Reports nasal discharge (clear discharge at baseline; 1 day of yellow-tinged discharge on 03/12/19), Denies odynophagia, Reports post nasal drip (normal for her in the spring), Denies sinus pain, Denies sinus pressure and Reports sore throat (due to post nasal drip; denies dysphagia) Cardiovascular Denies chest pain, Denies rapid heart rate, Denies irregular heart rhythm, Denies palpitations, Denies dyspnea, Denies dyspnea on exertion, Reports orthopnea (slight increase in coughing at night; denies any orthopnea at baseline), Denies paroxysmal nocturnal dyspnea and Denies slow heart rate Respiratory Denies change in phlegm color, Reports cough (with occasional clear-white phlegm production over the past 2 weeks), Denies excessive phlegm production, Denies pain on inspiration, Denies pain with cough, Denies dyspnea, Denies dyspnea on exertion and Denies wheezing Gastrointestinal Denies abdominal pain, Denies melena, Denies hematochezia, Denies constipation, Denies diarrhea, Denies nausea, Denies odynophagia and Denies vomiting Genitourinary Denies hematuria, Denies dysuria and Reports urinary urgency Musculoskeletal Reports as per HPI Neurologic Denies dizziness, Denies frequent falls and Denies headache(s) Psychiatric Reports anxiety (some anxiety surrounding surgery but is also anxious to proceed) and Denies depression Endocrine Denies excessive sweating and Denies palpitations Allergic/Immunologic Denies wheezing [facility] Medical History Deviated nasal septum (Chronic) Panic attacks (Acute) Branch retinal artery occlusion of left eye (Chronic) Arthritis of right hip (Chronic) Unspecified essential hypertension (Chronic 03/13/13) Non-alcoholic fatty liver disease (Chronic 03/13/13) Migraine without status migrainosus (Chronic 03/28/16) Impaired fasting glucose (Chronic 01/10/12) Hyperlipidemia (Chronic 01/10/12) Gastroesophageal reflux disease (Chronic 03/13/13) Chronic rhinitis (Chronic 01/10/12) Adjustment disorder with depressed mood (Acute 03/13/13) Cortical cataract of left eye (Resolved) Nuclear sclerotic cataract of right eye (Resolved) Other and unspecified ovarian cyst (Resolved 03/13/13) Surgical History History of colonoscopy (Chronic) S/P bilateral oophorectomy (Chronic) History of cholecystectomy (Chronic) History of hysterectomy (Chronic) Appendectomy Total replacement of hip (05/16/15) Status post cataract extraction and insertion of intraocular lens of left eye (Chronic 11/24/18) Cystocele, midline (Resolved 03/13/13) Family History Mother A-fib Hypertension Hyperlipidemia Father Emphysema lung Other Cancer FHx: mental illness Social History Smoking/Tobacco Use Status: Never Alcohol Intake: current Alcohol Intake frequency: holidays/special occasions only Alcohol type: hard liquor Drug use: Never Substance use type: does not use What type of physical activity do you participate in: regular exercise Duration: < 15 minutes/day Frequency: 5-6 times per week Do you feel safe in your relationship?: Yes Meds Home Medications Medication Instructions Recorded Confirmed Type guaifenesin [Mucinex] 1 - 2 tab-cap PO Q12H PRN PRN 02/04/13 03/13/19 History tab-cap multivitamin [Daily Multi-Vitamin] 1 ea PO DAILY 02/04/13 03/13/19 History cranberry conc-ascorbic acid 1 ea PO DAILY 03/22/14 03/13/19 History calcium carbonate [Caltrate 600] 600 mg PO BID 04/07/14 03/13/19 History acetaminophen [Tylenol Extra 1,000 mg PO Q6H PRN 05/09/15 03/13/19 History Strength] ibuprofen [Ibuprofen IB] 600 mg PO PRN PRN 09/16/16 03/13/19 History [id number] serr 2 ea PO DAILY 11/13/17 03/13/19 History [Osteo Bi-Flex (5-Loxin)] cholecalciferol (vitamin D3) 2,000 unit PO DAILY 11/26/17 03/13/19 History [Vitamin D3] fexofenadine 180 mg PO DAILY tab-cap 11/26/17 03/13/19 History fluticasone propionate 50 2 spray NS DAILY #1 gm 10/08/18 03/13/19 Rx mcg/actuation nasal spray,suspension ipratropium bromide 0.03 % nasal 2 spray NS BID #1 ml 10/08/18 03/13/19 Rx spray diazepam 5 mg tablet 5 mg PO DAILY PRN #5 tab 11/12/18 03/13/19 Rx celecoxib 200 mg capsule 200 mg PO BID #60 cap 02/02/19 03/13/19 Rx losartan 25 mg tablet 25 mg PO DAILY #90 tab 02/09/19 03/13/19 Rx ranitidine 150 mg tablet 300 mg PO DAILY #60 tab 03/11/19 03/13/19 Rx Allergies Allergy/AdvReac Type Severity Reaction Status Date / Time oxybutynin Allergy Severe Anaphylaxsi Unverified 03/13/19 10:46 s oxycodone Allergy Severe itching/diz Unverified 03/13/19 10:46 ziness Penicillins Allergy Severe Rash Unverified 03/13/19 10:46 zoster vaccine live Allergy Severe Anaphylaxsi Unverified 03/13/19 10:46 [From Zostavax (PF)] s Sulfa (Sulfonamide Allergy Intermediate Itching Unverified 03/13/19 10:49 Antibiotics) adhesive AdvReac Intermediate Skin Rash Unverified 03/13/19 10:46 loratadine AdvReac Intermediate Palpitation Unverified 03/13/19 10:46 s morphine AdvReac Intermediate profuse Unverified 03/13/19 10:46 vomiting codeine AdvReac Unknown profuse Unverified 03/13/19 10:46 vomiting erythromycin base AdvReac Unknown Diarrhea Unverified 03/13/19 10:46 on day 1 Exam Const General: cooperative and no acute distress [facility] Head: normal to inspection, normocephalic and atraumatic Ears: external ears normal General nose exam: external nose normal and no nasal discharge Face and sinus: face symmetric and no sinus tenderness Mouth: oral mucosae normal, lip normal, tongue normal and moist mucous membranes Teeth and gingiva: other (Full upper dentures; partial lower dentures) Throat: uvula midline and posterior oropharynx abnormal erythema; no cobblstoning, no edema and no exudates Eyes General: appearance normal, both eyes and all related structures Pupils: PERRL EOM: EOM intact bilaterally Neck Neck: trachea midline Carotids: normal carotid upstroke Lymphatic: no lymphadenopathy noted Resp Effort & Inspection: normal respiratory effort, able to speak in complete sentences and cough (coughed once during examination while laying flat; cough was nonproductive) Auscultation: no rales, rhonchi right upper and right lower, no wheezes and other (Clear to auscultation throughout left lung) Cardio Heart Sounds: S1 normal, S2 normal and no murmurs GI Palpation: soft, no hepatosplenomegaly and nontender Auscultation: normal bowel sounds Skin General skin exam: no rashes or lesions noted Extrem Other: Right hip examination: Patient grabs anterior groin when moving from sitting to standing position as well as when attempting to move onto examination table. Grimace is noted with patient moving from sitting to standing position as well as when moving on examination table. Skin is intact within abdominal folds. No signs of erythema, skin breakdown or discharge present within skin folds. Results Labs : 03/13/19 10:35 03/13/19 10:35
[2019-03-13 11:02] LABS: HCT 43.8 % (36.0-46.0); HGB 14.8 g/dL (12.0-15.5); Mean Corp. HGB Concentration 33.8 g/dL (32.0-36.0); Mean Corpuscular Hemoglobin 32.6 pg (27.0-33.0); Mean Corpuscular Volume 96.5 fL (80-95); Mean Platelet Volume 9.5 fL (8.0-11.0); Platelet Count 259 x1000/uL (130-400); RBC 4.54 m/cumm (4.00-5.20); RBC Distribution Width 12.6 % (11.7-14.6)
[2019-03-13 11:27] LABS: Anion Gap 8.5 mmol/L (3-11); BUN 16 mg/dL (7-18); CO2 28.5 mmol/L (21.0-32.0); CREATININE 0.73 mg/dL (0.55-1.02); Calcium 9.7 mg/dL (8.5-10.1); Chloride 103 mmol/L (98-107); Glucose 99 mg/dL (70-100); Sodium 140 mmol/L (136-145)
== END 2019-03-13 09:25 ==
PROVIDERS: PCP Nurse Practitioner; Visit Provider Student in an Organized Health Care Education/Training Program
DX: M25.551 Pain in right hip (principal); M16.11 Unilateral primary osteoarthritis, right hip; Z01.818 Encounter for other preprocedural examination
CPT/HCPCS: 36415; 80048; 85027; 86850; 86900; 86901; NC

== ENCOUNTER 2019-03-20 11:11 | Outpatient (CLI) | payer BC, SELFPAY ==
[2019-03-20 12:08] LABS: Abs Immature Grans 0.01 k/cumm (0.0-0.09); Absolute Basophil Count 0.04 k/cumm (0.0-0.2); Absolute Eosinophil Count 0.35 k/cumm (0.0-0.7); Absolute Monocyte Count 0.97 k/cumm (0.11-0.7); Basophils % 0.5; Eosinophils % 3.9; HCT 43.8 % (36.0-46.0); HGB 14.8 g/dL (12.0-15.5); Immature Grans % 0.1; Lymphocytes % 23.7; Mean Corp. HGB Concentration 33.8 g/dL (32.0-36.0); Mean Corpuscular Hemoglobin 32.6 pg (27.0-33.0); Mean Corpuscular Volume 96.5 fL (80-95); Mean Platelet Volume 9.6 fL (8.0-11.0); Monocytes % 10.9; Neutrophils % 60.9; Platelet Count 281 x1000/uL (130-400); RBC 4.54 m/cumm (4.00-5.20); RBC Distribution Width 12.6 % (11.7-14.6); White Blood Cell Count 8.87 k/cumm (4.4-10.8)
--- NOTE | 2019-03-30 15:34 | INDS_ITS ---
Date of service: 03/26/19 PT Notes Inpatient Physical Therapy Discharge Summary Dates: 03/26/2019 Dates of Service: 03/25/2019 through 03/26/2019 This is a clinical summary of care provided on the duration of dates listed above. No charge was made in the completion of this documentation. Referring Doctor: Toby Ames MD PT Orders: PT CONSULT: Status post right anterior ALDO Precautions: Fall. Standard. WBAT on right LE. No extreme ranges of the right hip extension. Patient Profile/Admitting Diagnosis: 63-year-old female who had persistent report of instability and functional mobility decline for the past several months resulting from chronic right hip pain. She is status post right anterior ALDO on post-operative day 2. 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 (Chronic) Arthritis of right hip (Chronic) Unspecified essential hypertension (Chronic 03/13/13) Non-alcoholic fatty liver disease (Chronic 03/13/13) Migraine without status migrainosus (Chronic 03/28/16) Impaired fasting glucose (Chronic 01/10/12) Hyperlipidemia (Chronic 01/10/12) Gastroesophageal reflux disease (Chronic 03/13/13) Chronic rhinitis (Chronic 01/10/12) Adjustment disorder with depressed mood (Acute 03/13/13) Cortical cataract of left eye (Resolved) Nuclear sclerotic cataract of right eye (Resolved) Other and unspecified ovarian cyst (Resolved 03/13/13) Surgical History History of colonoscopy (Chronic) S/P bilateral oophorectomy (Chronic) History of cholecystectomy (Chronic) History of hysterectomy (Chronic) Appendectomy Total replacement of hip (05/16/15) Status post cataract extraction and insertion of intraocular lens of left eye (Chronic 11/24/18) Cystocele, midline (Resolved 03/13/13) Social History/Home Situation: Patient lives in a 1 floor house with 4 steps to enter and rails on B sides. 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 She did need a straight cane while recovering left hip total arthroplasty in 2014. is retired and is able to do and house chores. Current Functional Limitations: Need for assistance for all bed mobility with bed rails, transfers with FWW, and ambulation task FWW Equipment Owned/DME: FWW, SC, grab bar, shower chair, hand-held shower Subjective: NT Objective: General Observation: NT Mental Status: NT Pain: NT ROM: Right Upper Extremity: Shoulder Flexion WFL. Shoulder abduction WFL. Elbow flexion WFL. Wrist flexion WFL. Functional opening and closing of hand WFL. Left Upper Extremity: Shoulder Flexion WFL. Shoulder abduction WFL. Elbow flexion WFL. Wrist flexion WFL. Functional opening and closing of hand WFL. Right Lower Extremity: Hip flexion 0-95. Hip abduction WFL. Knee flexion WFL. Ankle dorsiflexion WFL. Ankle plantarflexion WFL. Left Lower Extremity: Hip flexion WFL. Hip abduction WFL. Knee flexion WFL. Ankle dorsiflexion WFL. Ankle plantarflexion WFL. Strength: Right Upper Extremity: Shoulder flexors 5/5. Shoulder abductors 5/5. Elbow flexors 5/5. Elbow extensors 5/5. Seam Rubbing Machine Operator strong. Left Upper Extremity: Shoulder flexors 5/5. Shoulder abductors 5/5. Elbow flexors 5/5. Elbow extensors 5/5. Seam Rubbing Machine Operator strong. Right Lower Extremity: Hip flexors 3-/5. Hip abductors 3+/5. Knee flexors 3+/5. Knee extensors 3+/5. Ankle dorsiflexors 5/5. Ankle plantarflexors 5/5. Left Lower Extremity:Hip flexors 4-/5. Hip abductors 4-/5. Knee flexors4-5/5. Knee extensors 4-/5. Ankle dorsiflexors 5/5. Ankle plantarflexors 5/5. Sensation: Intact as to pain and pressure on BLE Bed Mobility/Transfers: Rolling SBA Supine to sit SBA Sit to supine SBA Sit to stand SBA Stand to sit SBA Bed to chair SBA Chair to bed SBA Gait: Patient was able to tolerate level surface ambulation 100 x 2 using FWW with minimal assist without complaints of dizziness, headache, and chest pain. Balance: Static Sitting: Good Dynamic Sitting: Good Static Standing: Fair Dynamic Standing: Fair Assessment: 63-year-old female who had persistent report of instability and functional mobility decline resulting from chronic right hip pain. She is status post right anterior ALDO on post-operative day 1. Patient presents with clinical signs and symptoms consistent with current/admitting diagnoses that have resulted to mobility limitations, gait instability, generalized weakness, and impairment of motor control as demonstrated by the following impairment level findings: 1. Decreased strength to R LE major muscle groups 2. Impaired sitting/standing balance 3. Impaired activity tolerance 4. Limitation of joint range of motion in right hip and knee joints Impairments are contributing to the following functional limitations: 1. Dependent bed mobility skills 2. Increased dependence with transfers 3. Inability to safely ambulate without assistive device and physical assistance 4. Increase completion time for mobility ADL performance 5. Increased fall risk 6. Inability to negotiate steps alone safely Goals: Goals X1 week 1. Supine-Sit independent NOT MET 2. Sit-Supine independent NOT MET 3. Sit-Stand independent NOT MET 4. Stand-Sit independent NOT MET 5. Bed-Chair independent NOT MET 6. Chair-Bed independent NOT MET 7. Independent gait on level surface with use of least restrictive device for at least 300 feet without report of pain nor dyspnea NOT MET 8. Independent stair negotiation while holding onto bilateral rails for at least 5 steps without report of pain nor dyspnea NOT MET 9. Independent with home exercise program NOT MET 10. Good static and dynamic standing balance/tolerance NOT MET DISCHARGE RECOMMENDATIONS: Patient not amenable to home health PT services as she would prefer outpatient PT services upon discharge from this hospital. She will benefit from the use of a FWW to reduce fall risk and maximize mobility. TREATMENT CODE/TIME: LITA Thank you for this referral. Candy Hurtado, PT, DPT, CLT [facility]
== END 2019-03-20 11:31 ==
PROVIDERS: PCP Nurse Practitioner; Visit Provider Nurse Practitioner Adult Health
DX: D72.829 Elevated white blood cell count, unspecified (principal); J32.9 Chronic sinusitis, unspecified
CPT/HCPCS: 36415; 85025

== ENCOUNTER 2019-03-24 05:54 | Inpatient (IN) | payer BC, SELFPAY ==
[2019-03-24] VITALS (14 sets, daily range): BP systolic 99–123; BP diastolic 56–80; PULSE 61–85; RESP 14–23; TEMP 36–37; O2SAT 92–97
[2019-03-24] MEDS: Acetaminophen 500 MG TAB 1000 MG PO ×3 (06:37→19:33)
[2019-03-24] MEDS: Lactated Ringers 1,000 ML 80 ML IV ×4 (06:37→21:15)
[2019-03-24] MEDS: Celecoxib 200 MG CAP 400 MG PO (06:37)
--- NOTE | 2019-03-24 07:11 | DI.RAD_ITS ---
SYMPTOMS/DIAGNOSIS: OA RT HIP, S/P RT ALDO C-ARM FLUOROSCOPY OF RIGHT HIP: Fluoroscopy Time: 29.0sec, 3.9mgy Fluoroscopy was provided in the OR for Dr. Ames. Hardcopy images show placement of a right hip prosthesis. The components appear satisfactorily aligned on the single view performed. A pre-existing left hip prosthesis is noted. PORTABLE PELVIS: Comparison is made with [id number] and [id number]. A right hip prosthesis has been placed. The components appear satisfactorily aligned. There has been change in the previously existing left hip prosthesis.
[2019-03-24] MEDS: ceFAZolin 2 GM/50 ML BAG IVPB (07:45)
[2019-03-24] MEDS: Normal Saline 20 ML VIAL (09:04)
[2019-03-24] MEDS: Ketorolac 30 MG/ML VIAL (09:04)
[2019-03-24] MEDS: Bupivacaine 0.25% Pres-Free 30 ML VIAL (09:04)
[2019-03-24] MEDS: Normal Saline Flush 10 ML SYR IV ×2 (13:33→21:47)
[2019-03-24] MEDS: HYDROmorphone 2 MG/ML VIAL 0.5 MG IVP ×2 (13:34→21:46)
[2019-03-24] MEDS: Celecoxib 200 MG CAP PO (19:34)
[2019-03-24] MEDS: Aspirin E.C. 325 MG TABEC 81 MG PO (19:34)
--- NOTE | 2019-03-25 01:40 | NUR.NOTE ---
Nursing Note: After Dilaudid was given, pt feels dizzy and like with spinning head. Medication administered very slow and flushed it well. She verbalized of not getting that med anymore, if ever she is on pain. Continue to assess.
[2019-03-25 03:00] VITALS: BP 126/77; PULSE 61; RESP 16; TEMP 37; O2SAT 96
[2019-03-25] MEDS: traMADol 50 MG TAB PO ×3 (03:44→14:30)
--- NOTE | 2019-03-25 06:04 | ROE_ITS ---
Date of service: 03/24/19 Time of Service: 10:01 Operative Note DATE OF PROCEDURE: 03/24/19 PRE-OP DIAGNOSIS: Right Hip Osteoarthritis POST-OP DIAGNOSIS: same PROCEDURE: Right Anterior Total Hip Arthroplasty SURGEON: Toby Ames CUBE MACHINE TENDER: Luzmaria Marte ANESTHESIA: spinal ESTIMATED BLOOD LOSS: 400 PATHOLOGY: none sent COMPLICATIONS: None Patient was transported to: PACU Patient's condition: stable Implants: 1. Depuy Mountain Acetabular Component, 52 mm 2. Depuy Acetabular Liner, 52 x 36 mm 3. Depuy Corail standard Collared femoral Stem, Size 11 4. Depuy Altrx Ceramic Femoral Head, Size 36+1.5 mm Indications: I have seen Diana in clinic for symptoms of hip arthritis, confirmed with radiographic findings. She has exhausted nonoperative methods and was having significant limitations in daily function and desired better function and less pain. I discussed the technical details of a hip replacement. I explained the risks of the procedure to include, but not limited to, bleeding, infection, pain, stiffness, fracture, damage to nerves and vessels, damage to muscles and tendons, loosening, instability, leg length inequality, need for repeat procedure, blood clot and cardiopulmonary demise. Despite these risks, Diana elected to proceed. Findings: There was significant signs of arthritis throughout the hip. These are most notable over the superior femoral head. There was also significant amount of inflammatory synovitis seen centrally and medially within the acetabulum. Procedure Description: Diana was greeted in the preoperative holding area where the correct side was identified and marked. The consent was reviewed with the patient and signed. The history and physical was updated. All questions were answered. She was taken back to the operating room. A spinal anesthestic was then administered. The patient was placed into the supine position on the operating room table. The patient was then positioned onto the ARCH table. Both feet were wrapped with Webrill cotton wrap along with Coban. The feet were placed in specialized boots for the ARCH table, well seated within the boot and secured. SCDs were applied. The patient was then slid down onto a peroneal post and the nonoperative leg was secured in a leg anglin attached to the table. The operative side was placed into the ARCH table attachment and bed height and positioning was secured. A preoperative AP pelvis was obtained to serve as a reference for determining leg lengths. Prophylactic antibiotics in the form of cefazolin were administered. 1g of Tranxemic Acid was given intravenously within 30 minutes of incision. The right leg was then prepped with Chloraprep and draped in a standard fashion with a large shower-curtain type drape with Iodine impregnated skin protection. A timeout to confirm correct identity, side and site, procedure, allergies, anesthesia, and medical concerns was performed. An obliquely oriented incision was made starting lateral to the ASIS and running distal over the Tensor Fascia Anca (TFL) muscle belly toward the fibular head, approximately 10cm. The skin and soft tissue was dissected sharply, through Elva?s fascia, and to the fascia of the TFL. With the fascia and superior border of the IT band identified, the fascia was incised with a new knife just above any perforators from the IT band. The TFL muscle belly was bluntly dissected away from the fascia and moved laterally. The fat between TFL and rectus was identified to ensure the dissection was not within the TFL. Blunt dissection created space between abductors and the capsule and retractor was placed over the lateral femoral neck. The fibers of the rectus femoris tendon were identified and these were freed from the anterior capsule. A second cobra retractor was placed around the medial femoral neck. The TFL was further retracted laterally to show the deep fascia. Careful dissection through this layer identified three main crossing vessels of the lateral femoral circumflex. These were cauterized in multiple locations and then cut without any noticeable bleeding. The TFL was further released bluntly from the deep fascia to expose anterior hip capsule and fat the Manoj orthopaedic retractor was then placed beneath the TFL and against sartorius and medial soft tissues to protect and retract the soft tissues. A T-capsulotomy was then performed starting at the superior lateral acetabulum and moving distally to the intertrochanteric ridge. These capsular flaps were tagged with a No. 1 Ethibond and elevated from within. The capsular flaps were released to the shoulder of the lateral neck and to the lesser trochanter to give excellent visualization of the proximal femur. A neck osteotomy was performed using an oscillating saw based on preoperative templates. This cut started in the shoulder and of the lateral neck and exited medially. The saw was at all times directed medially to avoid injury to the greater trochanter. 6cm of traction was applied to the leg and the osteotomy opened. The femoral head was removed with a corkscrew, making sure to protect the TFL on its exit. This was measured on the back table to determing the starting reamer size. Portions of the rectus obscuring visualization were minimally elevated off the superior acetabulum. An anterior retractor was placed over the anterior wall between capsule and labrum. A posterior retractor was placed similarly. This provided excellent visualization. The contents of the cotyloid fossa were removed with electrocautery and the labrum was removed with a knife. There was a notable floor osteophyte. Acetabular reaming began with a 45 mm reamer. This first reaming was directed anterior to posterior and medial to get down to the true floor. This was inspected and reamed until the true floor was reached. I then reamed sequentially up to a 51 mm reamer where good fit was obtained. The larger reamers were oriented based on anatomical reference of the anterior and lateral alamo to ensure proper abduction and anteversion. Positioning and size was confirmed with the fluoroscopy. A 52 mm Depuy Mountain acetabular component was selected. The deep tissues were irrigated. The acetabular component was then impacted in a position of about 40-45 degrees of abduction and 15-20 degrees of anteversion, using the patient?s anatomy as the ultimate landmark. Fluoroscopy was used to confirm this. There was excellent ve teacher of the acetabular component and the inserting handle was removed. The acetabular liner, Depuy 52 x 36mm polyethylene liner, was inserted and lined up with the tines of the acetabular component. There was no soft tissue interposition. The liner was then impacted into position and confirmed to be well-seated. A portion of the homar-articular cocktail was then injected around the acetabulum into the capsule and periosteum. This cocktail consisted of 50cc of 0.25% Bupivicaine and 20cc of Exparel, expanded to a total of 120cc. Traction was released from the femur. The leg was rotated to 120 degrees. Any remaining medial capsule was released until the lesser trochanter was easily palpable. A Pino retractor was placed medially. The lateral capsule was further released into the shoulder to allow access to the greater trochanter. A Pino retractor was placed over the greater trochanter which allowed the trochanter to flip in front of the capsule for excellent exposure. The leg was brought down into maximal extension and 20 degrees of adduction while ensuring there was no impingement on the acetabulum. Any remnant capsule within the trochanter was released. Piriformis and obturator externis were identified and protected. There was excellent access to the proximal femur. The lateral neck remnant was removed with a rongeur. A blunt canal probe was used to identify the canal and trajectory for later broaching. A box osteotome initiated the broach course. A small curved rasp and a curved curette were used to work laterally. Broaching then began with a size 8 Corail broach. This was inserted manually around the trochanter and into the canal before mallet blows. The broach was seated to a few millimeters below the cut level based on the neck cut and the preoperative template. Sequential broaching was continued until a tight fit was obtained with good rotational control of the femur. A trial standard neck was inserted along with a +1.5 trial head. The leg was brought out of extension and adduction and then reduced with traction and internal rotation. The leg was stable anteriorly in a position of 30 degrees of extension and 90 degrees of external rotation. Fluoroscopy was used to ensure there was no fracture and the stem was seated well. Leg lengths were checked with an AP pelvis and pelvic reference points. Once content with the desired offset and leg lengths, the leg was brought back into extension, external rotation and adduction. The periosteum and surrounding tissue was injected with remaining portion of the homar-articular cocktail. The proximal femur was irrigated as well as the deep tissues. The Depuy Corail standard collared stem, size 11, was then manually inserted into the proximal femur making sure to control rotation. It was then malleted into position with light blows, giving breaks to allow bone expansion and decrease risk of fracture. The selected Depuy Altrx Ceramic Head, size 36 mm, was then placed onto the clean and dry trunnion and secured with impaction onto the tapered fit. The leg was brought back out of extension and adduction and reduced with traction and internal rotation. Stability was confirmed with no shuck at 90 degrees of external rotation and 30 degrees of extension. No impingement through range of motion arc. Final x-ray images were obtained with fluoroscopy to confirm adequate positioning and no intraoperative fracture. The deep tissues were thoroughly irrigated with a pulse lavage. The second dose of TXA 1g was administered intravenously. The capsule was then reapproximated with the previously placed Ethibond sutures. The TFL fascia was finally closed with a No. 2 Stratafix, barbed suture. Deep tissues were then reapproximated with 0 Vicryl and a running 2-0 Vicryl. The skin was closed with a running 4-0 Monocryl in a subcuticular fashion. This was reinforced with skin glue. A Mepilex silver dressing was applied. At the end of the case, all counts were correct. Diana was transferred to the hospital bed without difficulty and suffering no apparent complication. Diana has a good prognosis. Physical therapy will start today and without restrictions, weight-bearing as tolerated. Aspirin 81mg BID will be used for DVT prophylaxis.
[2019-03-25 07:05] VITALS: BP 119/75; PULSE 58; RESP 18; TEMP 36.4; O2SAT 92
[2019-03-25] MEDS: Celecoxib 200 MG CAP PO (07:44)
[2019-03-25] MEDS: Acetaminophen 500 MG TAB 1000 MG PO ×2 (07:45→14:30)
[2019-03-25] MEDS: Calcium Carbonate 1.5 GM TAB PO (07:45)
[2019-03-25] MEDS: Losartan 25 MG TAB PO (07:46)
[2019-03-25] MEDS: Cholecalciferol (Vitamin D3) 1,000 UNIT TAB 2000 UNITS PO (07:46)
[2019-03-25] MEDS: Fluticasone NASAL SPRAY 16 GM BTL NS (07:46)
[2019-03-25] MEDS: Multivitamin TAB 1 TAB PO (07:46)
[2019-03-25] MEDS: Fexofenadine 180 MG TAB PO (07:46)
[2019-03-25] MEDS: Aspirin E.C. 81 MG TABEC PO (07:46)
--- NOTE | 2019-03-25 08:03 | W.PM.PROGNOT ---
Date of Service Date of service: 03/25/19 Time of Service: 08:03 Assessment and Plan (1) Arthritis of right hip: Current visit: No Status: Chronic Diana is status post right anterior total arthroplasty. She is doing well. Her pain is well controlled with tramadol. She was able to mobilize physical therapy. She has yet to void but after she does she will be cleared for discharge home. Subjective Interval history since last seen: Diana is doing well. The medial groin pain is getting better and she has more global pain around the hip and thigh, soreness. She has made with physical therapy. She is been able get in and out of the bed on her own. Is been able to walk. Her Goddard catheter was removed this morning. She denies chest pain or shortness of breath. She denies fever or chills. Exam Narrative Exam Narrative: Some fullness about the right hip. There is ecchymosis seen. Mild tenderness to palpation throughout the hip. She tolerates internal and external rotation without difficulty. Some decreased sensation over the lateral femur. Intact ankle dorsiflexion and plantar flexion. Intact extensor and flexor function of the great toe. Sensation intact light touch over the deep and superficial peroneal nerves and tibial nerves. Objective Objective Clinical Data: Vital Signs Temperature 36.4 C L 03/25/19 07:05 Temperature Source Tympanic 03/25/19 07:05 Pulse 58 L 03/25/19 07:05 Pulse Rhythm Regular 03/25/19 00:41 Respiratory Rate 18 03/25/19 07:05 Respiratory Effort 03/25/19 00:41 Respiratory Depth Normal 03/25/19 00:41 Respiratory Pattern Normal 03/25/19 00:41 Blood Pressure 119/75 03/25/19 07:05 Pulse Oximetry 92 L 03/25/19 07:05 Respiratory End-tidal CO2 30 03/24/19 10:45 Oxygen Delivery Method Room Air 03/25/19 07:05 Oxygen Flow Rate 0 03/25/19 07:05 Pain Level 6 03/25/19 07:45 Intake & Output 03/24/19 03/24/19 03/25/19 11:59 23:59 11:59 Intake Total 2750 / 4582.000 1832.000 / 4582.000 860 / 860 Output Total 1150 / 2125 975 / 2125 500 / 500 Balance 1600 / 2457.000 857.000 / 2457.000 360 / 360 Weight 95.3 kg Intake: IV 2270 / 3562.000 1292.000 / 3562.000 860 / 860 Oral 480 / 1020 540 / 1020 Output: Urine 550 / 1525 975 / 1525 500 / 500 Estimated Blood Loss 600 / 600 Other: Urine Color Yellow Yellow Yellow Straw Urine Appearance Clear Clear Clear Comment PACU. Emesis Description None Voiding Methods Indwelling Catheter
--- NOTE | 2019-03-25 08:12 | PDOC.CMIN ---
- If Service Date Differs Date of service: 03/25/19 Time of Service: 08:14 Care Management Initial Assess REASON FOR HOSPITALIZATION:: (R) Hip DJD PAST MEDICAL HISTORY/PAST SURGICAL HISTORY:: Deviated nasal septum (Chronic). Panic attacks (Acute). 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 Arthritis of right hip (Chronic). Unspecified essential hypertension (Chronic 03/13/13). Non-alcoholic fatty liver disease (Chronic 03/13/13). Migraine without status migrainosus (Chronic 03/28/16). Impaired fasting glucose (Chronic 01/10/12). Hyperlipidemia (Chronic 01/10/12). Gastroesophageal reflux disease (Chronic 03/13/13). Chronic rhinitis (Chronic 01/10/12). Adjustment disorder with depressed mood (Acute 03/13/13). Cortical cataract of left eye (Resolved). Nuclear sclerotic cataract of right eye (Resolved). Other and unspecified ovarian cyst (Resolved 03/13/13). History of colonoscopy (Chronic). S/P bilateral oophorectomy (Chronic). History of cholecystectomy (Chronic). History of hysterectomy (Chronic). Appendectomy. Total replacement of hip (05/16/15). Status post cataract extraction and insertion of intraocular lens of left eye (Chronic 11/24/18). Cystocele, midline (Resolved 03/13/13) PREVIOUS FUNCTIONAL STATUS/SOCIAL/FAMILY SUPPORTS:: Diana resides in [facility] with her Adithya. 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 Diana is independent at baseline, drives, and manages ADL's CURRENT FUNCTIONAL STATUS:: Currently Diana is sitting up in her chair when this publicity writer visits, her Adithya is in the room with her. Both are pleasant and receptive to discussion. ADVANCE DIRECTIVES:: On file - Adithya Humphreys is agent. Chey Evangelista is alternate Has patient been provided with information about the portal?: Yes Did the patient sign up for the portal?: No (already signed up) CODE STATUS:: Full Code INSURANCE COVERAGE / FINANCIAL ISSUES:: health plans inc, [employer] CURRENT HOME/COMMUNITY SERVICES/EQUIPMENT:: currently Diana has no services in the community. She has a cane which she states she utilized coming into the hospital PRIMARY CARE PHYSICIAN:: Clemencia Ely POTENTIAL DISCHARGE NEEDS:: F/U appointment with Dr. Ames. DME - FWW needed - has chosen [facility]. PT - If needed would like outpatient PT through [facility] in [facility] PATIENT/FAMILY EDUCATION NEEDS:: Review DC instructions, any limitations, and ongoing DC planning discussion. Discuss ?Ask me three? ANTICIPATED BARRIERS TO DISCHARGE:: None identified at this time TRANSPORTATION:: via private vehicle with tawanna Haji PLAN:: Diana will return home with ? outpatient PT through [facility] in [facility] when medically cleared. Diana will F/U with Dr. Ames and plan of care as prescribed. Adithya to transport.
--- NOTE | 2019-03-25 08:33 | INITIAL_ITS ---
- If Service Date Differs Date of service: 03/25/19 Time of Service: 08:14 Care Management Initial Assess REASON FOR HOSPITALIZATION:: (R) Hip DJD PAST MEDICAL HISTORY/PAST SURGICAL HISTORY:: Deviated nasal septum (Chronic). Panic attacks (Acute). 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 Arthritis of right hip (Chronic). Unspecified essential hypertension (Chronic 03/13/13). Non-alcoholic fatty liver disease (Chronic 03/13/13). Migraine without status migrainosus (Chronic 03/28/16). Impaired fasting glucose (Chronic 01/10/12). Hyperlipidemia (Chronic 01/10/12). Gastroesophageal reflux disease (Chronic 03/13/13). Chronic rhinitis (Chronic 01/10/12). Adjustment disorder with depressed mood (Acute 03/13/13). Cortical cataract of left eye (Resolved). Nuclear sclerotic cataract of right eye (Resolved). Other and unspecified ovarian cyst (Resolved 03/13/13). History of colonoscopy (Chronic). S/P bilateral oophorectomy (Chronic). History of cholecystectomy (Chronic). History of hysterectomy (Chronic). Appendectomy. Total replacement of hip (05/16/15). Status post cataract extraction and insertion of intraocular lens of left eye (Chronic 11/24/18). Cystocele, midline (Resolved 03/13/13) PREVIOUS FUNCTIONAL STATUS/SOCIAL/FAMILY SUPPORTS:: Diana resides in [facility] with her Adithya. 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 Diana is independent at baseline, drives, and manages ADL's CURRENT FUNCTIONAL STATUS:: Currently Diana is sitting up in her chair when this senior writer visits, her Adithya is in the room with her. Both are pleasant and receptive to discussion. ADVANCE DIRECTIVES:: On file - Adithya Humphreys is agent. Chey Evangelista is alternate Has patient been provided with information about the portal?: Yes Did the patient sign up for the portal?: No (already signed up) CODE STATUS:: Full Code INSURANCE COVERAGE / FINANCIAL ISSUES:: health plans inc, [employer]bs CURRENT HOME/COMMUNITY SERVICES/EQUIPMENT:: currently Diana has no services in the community. She has a cane which she states she utilized coming into the hospital PRIMARY CARE PHYSICIAN:: Clemencia Ely POTENTIAL DISCHARGE NEEDS:: F/U appointment with Dr. Ames. DME - FWW needed - has chosen [facility]. PT - If needed would like outpatient PT through [facility] in [facility] PATIENT/FAMILY EDUCATION NEEDS:: Review DC instructions, any limitations, and ongoing DC planning discussion. Discuss ?Ask me three? ANTICIPATED BARRIERS TO DISCHARGE:: None identified at this time TRANSPORTATION:: via private vehicle with tawanna Haji PLAN:: Diana will return home with ? outpatient PT through [facility] in [facility] when medically cleared. Diana will F/U with Dr. Ames and plan of care as prescribed. Adithya to transport.
--- NOTE | 2019-03-25 09:06 | PT.INIE ---
Date of service: 03/25/19 Time of Service: 08:15 PT Notes Inpatient Physical Therapy Evaluation Date: 03/25/2019 Referring Doctor: Toby Ames MD PT Orders: PT CONSULT: Status post right anterior ALDO Precautions: Fall. Standard. WBAT on right LE. No extreme ranges of the right hip extension. Patient Profile/Admitting Diagnosis: 63-year-old female who had persistent report of instability and functional mobility decline for the past several months resulting from chronic right hip pain. She is status post right anterior ALDO on post-operative day 1 . 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 (Chronic) Arthritis of right hip (Chronic) Unspecified essential hypertension (Chronic 03/13/13) Non-alcoholic fatty liver disease (Chronic 03/13/13) Migraine without status migrainosus (Chronic 03/28/16) Impaired fasting glucose (Chronic 01/10/12) Hyperlipidemia (Chronic 01/10/12) Gastroesophageal reflux disease (Chronic 03/13/13) Chronic rhinitis (Chronic 01/10/12) Adjustment disorder with depressed mood (Acute 03/13/13) Cortical cataract of left eye (Resolved) Nuclear sclerotic cataract of right eye (Resolved) Other and unspecified ovarian cyst (Resolved 03/13/13) Surgical History History of colonoscopy (Chronic) S/P bilateral oophorectomy (Chronic) History of cholecystectomy (Chronic) History of hysterectomy (Chronic) Appendectomy Total replacement of hip (05/16/15) Status post cataract extraction and insertion of intraocular lens of left eye (Chronic 11/24/18) Cystocele, midline (Resolved 03/13/13) Social History/Home Situation: Patient lives in a 1 floor house with 4 steps to enter and rails on B sides. 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 She did need a straight cane while recovering left hip total arthroplasty in 2014. is retired and is able to do and house chores. Current Functional Limitations: Need for assistance for all bed mobility with bed rails, transfers with FWW, and ambulation task FWW Equipment Owned/DME: FWW, SC, grab bar, shower chair, hand-held shower Subjective: Patient agreeable to a PT consult. Patient denies headache, dizziness, and chest pain throughout PT consultation. She reports adverse reaction to Dilaudid last night. She now takes tramadol for pain management. Objective: General Observation: Patient seen resting in bed. IV off. Goddard catheter off this morning. Mental Status: Alert and oriented x3 Pain: 5/10 at rest and with weight bearing. ROM: Right Upper Extremity: Shoulder Flexion WFL. Shoulder abduction WFL. Elbow flexion WFL. Wrist flexion WFL. Functional opening and closing of hand WFL. Left Upper Extremity: Shoulder Flexion WFL. Shoulder abduction WFL. Elbow flexion WFL. Wrist flexion WFL. Functional opening and closing of hand WFL. Right Lower Extremity: Hip flexion 0-95. Hip abduction WFL. Knee flexion WFL. Ankle dorsiflexion WFL. Ankle plantarflexion WFL. Left Lower Extremity: Hip flexion WFL. Hip abduction WFL. Knee flexion WFL. Ankle dorsiflexion WFL. Ankle plantarflexion WFL. Strength: Right Upper Extremity: Shoulder flexors 5/5. Shoulder abductors 5/5. Elbow flexors 5/5. Elbow extensors 5/5. Medical And Scientific Illustrator strong. Left Upper Extremity: Shoulder flexors 5/5. Shoulder abductors 5/5. Elbow flexors 5/5. Elbow extensors 5/5. Medical And Scientific Illustrator strong. Right Lower Extremity: Hip flexors 3-/5. Hip abductors 3+/5. Knee flexors 3+/5. Knee extensors 3+/5. Ankle dorsiflexors 5/5. Ankle plantarflexors 5/5. Left Lower Extremity:Hip flexors 4-/5. Hip abductors 4-/5. Knee flexors4-5/5. Knee extensors 4-/5. Ankle dorsiflexors 5/5. Ankle plantarflexors 5/5. Sensation: Intact as to pain and pressure on BLE Bed Mobility/Transfers: Rolling SBA Supine to sit SBA Sit to supine SBA Sit to stand CGA Stand to sit CGA Bed to chair CGA Chair to bed CGA Gait: Patient was able to tolerate level surface ambulation 20 steps + 15 steps + 2 turns +1 sidesteps + 2 backsteps to using FWW with minimal assist without complaints of dizziness, headache, and chest pain. Patient did continued pain at 6/10 with weight bearing. Balance: Static Sitting: Good Dynamic Sitting: Good Static Standing: Fair Dynamic Standing: Fair Special Tests: Mobility Limitations Standardized Measure [facility] AM-PAC 6 clicks Basic Mobility Inpatient Short Form: Raw Score: 18 CMS Score: 47% deficit Informed Consent/Education: Patient instructed in purpose of PT consult and plan of care. Assessment: 63-year-old female who had persistent report of instability and functional mobility decline resulting from chronic right hip pain. She is status post right anterior ALDO on post-operative day 1. Patient presents with clinical signs and symptoms consistent with current/admitting diagnoses that have resulted to mobility limitations, gait instability, generalized weakness, and impairment of motor control as demonstrated by the following impairment level findings: 1. Decreased strength to R LE major muscle groups 2. Impaired sitting/standing balance 3. Impaired activity tolerance 4. Limitation of joint range of motion in right hip and knee joints Impairments are contributing to the following functional limitations: 1. Dependent bed mobility skills 2. Increased dependence with transfers 3. Inability to safely ambulate without assistive device and physical assistance 4. Increase completion time for mobility ADL performance 5. Increased fall risk 6. Inability to negotiate steps alone safely Patient is assessed as a Moderate 31197 complexity based on the following: History: 63-year-old female with independent with independent premorbid mobility level who had persistent report of instability and functional mobility decline resulting from chronic right hip pain. She is status post right anterior ALDO on post-operative day 1 Examination: nderlying impairments and functional limitations Presentation: Evolving Decision Makin moderate complexity Goals: Goals X1 week 1. Supine-Sit independent 2. Sit-Supine independent 3. Sit-Stand independent 4. Stand-Sit independent 5. Bed-Chair independent 6. Chair-Bed independent 7. Independent gait on level surface with use of least restrictive device for at least 300 feet without report of pain nor dyspnea 8. Independent stair negotiation while holding onto bilateral rails for at least 5 steps without report of pain nor dyspnea 9. Independent with home exercise program 10. Good static and dynamic standing balance/tolerance Plan of Care/Treatment Plan: 1-2x/day, 7 days/week x 1 week. Plan of care has been reviewed with the SALES PROJECT ENGINEER providing the service under Physical Therapy direction. Initiate Physical Therapy intervention for strengthening, bed mobility, transfers, gait, stairs, balance training, use of assistive device. DISCHARGE RECOMMENDATIONS: Patient not amenable to health PT services as she would prefer outpatient PT services upon discharge from this hospital. She will benefit from the use of a FWW to reduce fall risk and maximize mobility. TREATMENT CODE/TIME: [id number] [id number] minutes beginning at 8:15 AM. Thank you for this referral. Candy Hurtado, PT, DPT, CLT [facility]
[2019-03-25 10:55] VITALS: BP 108/62; PULSE 60; RESP 15; TEMP 36.9; O2SAT 94
--- NOTE | 2019-03-25 12:55 | DSE_ITS ---
DS: Diagnosis Discharge Diagnosis (1) Arthritis of right hip: Status: Chronic Discharge Plan Disposition Patient Disposition: HOME Condition: Good Discharge Details Reason For Visit: RIGHT HIP DJD Admit Date/Time: 03/24/19 05:54 Admit Provider: Toby Ames Attending Provider: Toby Ames Primary Care Provider: Clemencia Ely Hospital Course Hospital Course: Patient was admitted to the medical/surgical floor following the procedure. It was tolerated well without any notable medical, surgical, or anesthetic complications. Mobilization began postoperatively. The espinal catheter was removed and voiding spontaneously. Vitals were stable. Physical therapy worked with the patient and was cleared for discharge home. No acute medical issues. Home Meds and New Rx's Prescriptions: New tramadol 50 mg Tablet 50 mg PO Q4H PRN PRN (Reason: Pain) Qty: 18 RF: 0 celecoxib 200 mg capsule 200 mg PO BID PRN (Reason: pain) Qty: 60 RF: 1 acetaminophen 500 mg tablet 1,000 mg PO Q8H PRN (Reason: pain) Qty: 90 RF: 3 aspirin 81 mg tablet,delayed release (DR/EC) 81 mg PO BID Qty: 60 RF: 0 Continued ipratropium bromide 0.03 % spray,non-aerosol 2 spray NS BID Qty: 1 RF: 6 fluticasone propionate 50 mcg/actuation spray,suspension 2 spray NS DAILY Qty: 1 RF: 12 diazepam 5 mg tablet 5 mg PO DAILY PRN (Reason: dental appointment) Qty: 5 RF: 0 multivitamin [Daily Multi-Vitamin] 1 EACH tablet 1 ea PO DAILY RF: 0 guaifenesin [Mucinex] 600 MG tablet extended release 12hr 1 - 2 tab-cap PO Q12H PRN PRN (Reason: Allergy Symptoms) RF: 0 cranberry conc-ascorbic acid 1 EACH capsule 1 ea PO DAILY RF: 0 calcium carbonate [Caltrate 600] 600 MG tablet 600 mg PO BID RF: 0 [id number] serr [Osteo Bi-Flex (5-Loxin)] 1 EACH tablet 2 ea PO DAILY RF: 0 fexofenadine 180 MG tablet 180 mg PO DAILY RF: 0 cholecalciferol (vitamin D3) [Vitamin D3] 2,000 UNIT capsule 2,000 unit PO DAILY RF: 0 celecoxib [Celebrex] 200 mg capsule 200 mg PO BID Qty: 60 RF: 0 losartan 25 mg tablet 25 mg PO DAILY Qty: 90 RF: 3 ranitidine HCl 150 mg tablet 300 mg PO DAILY Qty: 60 RF: 6 ibuprofen [Ibuprofen IB] 200 MG tablet 600 mg PO PRN PRNRF: 0 Discontinued acetaminophen [Tylenol Extra Strength] 500 MG tablet 1,000 mg PO Q6H PRN (Reason: Pain) RF: 0 Discharge Instructions Additional Instructions: Dr. Ames?s Total Hip Discharge Instructions Activity: The most important activity is to walk. You should try to take short walks a few times a day. You have no restrictions on movement or positioning, but do not try to force what you do. You will find some stiffness and weakness with hip flexion (lifting your knee). Do not try to strengthen this too early, continue to practice walking and stairs and this will come. - Outpatient physical therapy can be helpful to help return you to a normal gait and improve your flexibility and strength. This can start around 2 weeks. For some patients, it?s not necessary. Usually this is determined at the time of discharge or at the first post-operative visit. - You should wear the SHIRA hose on both legs for 4 weeks. Dressing: Keep the surgical dressing in place for at least one week. After the first week it may be removed and replace with light gauze and tape or nothing. It may get wet after 3 days but avoid soaking the dressing. If it gets wet, just lightly pat dry. It is important to always keep some gauze between skin folds, especially when you are sitting. Spend some time with the wound exposed when you are lying flat as the incision does wrinkle onto itself. Medications: - You should take Tylenol and an anti-inflammatory Celebrex as your primary pain control medications - You have been prescribed a stronger pain medication tramadol for breakthrough pain, take as needed as prescribed. - You will be taking aspirin 81mg twice a day for DVT prevention unless instructed otherwise. - If you have constipation you should take Colace or Miralax (both [id number]). It takes most people 3-4 days to have a bowel movement. Follow-up: 2 weeks Stand Alone Forms: Nursing Discharge Form Referrals: Toby Ames MD [ [facility] STAFF PHYSICIAN] - Activity:: Activity as Tolerated Equipment/Supplies:: Walker Diet:: As Tolerated Discharge Orders Discharge Orders: Discharge Order (Routine); Ordered 03/25/19 Ordered By: Toby Ames DS: Data Vitals/I&O Vitals and I&O: Vital Signs Temperature 36.9 C 03/25/19 10:55 Temperature Source Tympanic 03/25/19 10:55 Pulse 60 03/25/19 10:55 Pulse Rhythm Regular 03/25/19 09:10 Respiratory Rate 15 03/25/19 10:55 Respiratory Effort Non-Labored 03/25/19 09:10 Respiratory Depth Normal 03/25/19 09:10 Respiratory Pattern Normal 03/25/19 09:10 Blood Pressure 108/62 03/25/19 10:55 Pulse Oximetry 94 L 03/25/19 10:55 Respiratory End-tidal CO2 30 03/24/19 10:45 Oxygen Delivery Method Room Air 03/25/19 10:55 Oxygen Flow Rate 0 03/25/19 10:55 Pain Level 6 03/25/19 07:45 Intake & Output 03/24/19 03/25/19 03/25/19 23:59 11:59 23:59 Intake Total 1832.000 / 4582.000 1789.333 / 2029.333 240 / 2029.333 Output Total 975 / 2125 500 / 500 Balance 857.000 / 2457.000 1289.333 / 1529.333 240 / 1529.333 Intake: IV 1292.000 / 3562.000 1069.333 / 1069.333 Oral 540 / 1020 720 / 960 240 / 960 Output: Urine 975 / 1525 500 / 500 Other: Urine Color Yellow Yellow Straw Urine Appearance Clear Clear Voiding Methods Indwelling Catheter [facility] Medical History Deviated nasal septum (Chronic) Panic attacks (Acute) Branch retinal artery occlusion of left eye (Chronic) Arthritis of right hip (Chronic) Unspecified essential hypertension (Chronic 03/13/13) Non-alcoholic fatty liver disease (Chronic 03/13/13) Migraine without status migrainosus (Chronic 03/28/16) Impaired fasting glucose (Chronic 01/10/12) Hyperlipidemia (Chronic 01/10/12) Gastroesophageal reflux disease (Chronic 03/13/13) Chronic rhinitis (Chronic 01/10/12) Adjustment disorder with depressed mood (Acute 03/13/13) Cortical cataract of left eye (Resolved) Nuclear sclerotic cataract of right eye (Resolved) Other and unspecified ovarian cyst (Resolved 03/13/13) Surgical History History of colonoscopy (Chronic) S/P bilateral oophorectomy (Chronic) History of cholecystectomy (Chronic) History of hysterectomy (Chronic) Appendectomy Total replacement of hip (05/16/15) Status post cataract extraction and insertion of intraocular lens of left eye (Chronic 11/24/18) Cystocele, midline (Resolved 03/13/13) Family History Mother A-fib Hypertension Hyperlipidemia Father Emphysema lung Other Cancer FHx: mental illness Social History Smoking/Tobacco Use Status: Never Alcohol Intake: current Alcohol Intake frequency: holidays/special occasions only Alcohol type: hard liquor Drug use: Never Substance use type: does not use What type of physical activity do you participate in: regular exercise Duration: < 15 minutes/day Frequency: 5-6 times per week Do you feel safe in your relationship?: Yes
--- NOTE | 2019-03-25 14:26 | PT.INTREAT ---
Date of service: 03/25/19 Time of Service: 14:26 PT Notes Inpatient Physical Therapy Treatment Note [facility] Date: 03/25/2019 PRECAUTIONS: Fall, WBAT R SUBJECTIVE: Diana reports that she is feeling pretty good today, she reports that she is having some soreness lateral aspect of her right hip. OBJECTIVE: PAIN: Patient complained of right hip soreness with ther ex and gait training BED MOBILITY/TRANSFERS Sit-supine: SBA with HOB flat Sit-stand: SBA Stand-sit: SBA GAIT Assistive Device: FWW Weight bearing: WBAT R Assist: CGA?SBA Distance: 100' x2 THEREX: Patient completed a lower extremity strengthening and stabilization program, as per flow sheet. Exercises were performed in a seated position. Patient required assist with hip flexion and hip abduction exercises due to pain. STAIRS: Up/down 3x4 and 2x6 using B rails and a step to pattern with supervision ASSESSMENT: Patient tolerated session with complaints of right hip soreness with gait training and ther ex. Patient was able to tolerate a progression in gait distance with FWW support and SBA. Patient would benefit from continued gait and transfer training as well as strengthening for improved mobility and improved activity tolerance. PLAN: Continue with PTs POC TREATMENT CODE/TIME: 25 minutes; 23692, [id number]
--- NOTE | 2019-03-25 14:44 | CHAPLAIN ---
Diana and her (a retired [employer] employee), were both very pleasant and easily engaged in a conversation. Diana told me she is fine when I introduced myself and explained my role. She said they used to attend [facility], but now no longer go to any sikh. I offered support and will continue to visit.
== END 2019-03-25 14:50 | disposition home or self-care (01) | DRG 470 ==
LOC: PDS 08:51 → MS 10:28
PROVIDERS: Admitting Provider Student in an Organized Health Care Education/Training Program; PCP Nurse Practitioner; Visit Provider Student in an Organized Health Care Education/Training Program
PROC: 0SR904A Replacement of Right Hip Joint with Ceramic on Polyethylene Synthetic Substitute, Uncemented, Open Approach (ICD-10-PCS; CPT 27130; principal; 2019-03-24 07:30)
DX: M16.11 Unilateral primary osteoarthritis, right hip (principal); Z96.641 Presence of right artificial hip joint; Z96.642 Presence of left artificial hip joint; M65.88 Other synovitis and tenosynovitis, other site
CPT/HCPCS: 27130; 97110; 97162; 97530; NC; 72170; 73501; J0690; J1100; J1885; J2250; J2405

== ENCOUNTER 2019-03-30 16:55 | Outpatient (REF) | payer BC, SELFPAY | END 2019-03-30 17:15 | LOC: LBN 16:55 | PROVIDERS: PCP Nurse Practitioner; Visit Provider Nurse Practitioner Adult Health | DX: R30.0 Dysuria (principal); R31.9 Hematuria, unspecified | CPT/HCPCS: 87077; 87086; 87186 ==

== ENCOUNTER 2019-04-08 11:05 | Outpatient (CLI) | payer BC, SELFPAY ==
--- NOTE | 2019-04-08 10:38 | DI.RAD_ITS ---
SYMPTOMS/DIAGNOSIS: POST OP RIGHT HIP: The patient is status post ALDO. The prosthesis in good position, surrounding bone intact with no interval change when compared with the prior study of 03/24/19.
== END 2019-04-08 11:25 ==
PROVIDERS: PCP Nurse Practitioner; Visit Provider Student in an Organized Health Care Education/Training Program
DX: Z96.641 Presence of right artificial hip joint (principal); Z47.1 Aftercare following joint replacement surgery; M16.11 Unilateral primary osteoarthritis, right hip
CPT/HCPCS: 73502